=== PATIENT | male | born 1985 | race African-American/Black ===

== ENCOUNTER 2022-10-10 05:00 | Emergency (ER) | payer MEDICAID, OTHER ==
[~2022-10-10] VITALS: Ht 185.4 cm; Wt 99.0 kg
[2022-10-10 05:28] VITALS: O2SAT 99
[2022-10-10 09:27] VITALS: BP 138/72; PULSE 86; RESP 18; TEMP 98.8
== END 2022-10-10 09:28 | disposition home or self-care (01) ==
LOC: ER 05:00
DX: S93.401A Sprain of unspecified ligament of right ankle, initial encounter (principal); W18.39XA Other fall on same level, initial encounter; Y93.89 Activity, other specified; Y92.89 Other specified places as the place of occurrence of the external cause; Y99.8 Other external cause status
CPT/HCPCS: 73590; 73610; 73630; 99284; Z7610